=== PATIENT | female | born 1950 | race Caucasian/White ===

== ENCOUNTER 2021-01-11 21:06 | Inpatient (IN) ==
[2021-01-11] MEDS ORDERED: Naloxone 0.4 MG/ML INJ IVP PRN (23:35)
[2021-01-11] MEDS ORDERED: Ondansetron 4 MG/2 ML VIAL IVP PRN (23:35)
[2021-01-11] MEDS ORDERED: 0.9 % Sodium Chloride 1,000 ML IVC SCH (23:45)
[2021-01-12 06:12] LABS: Hematocrit 35.8 % (35.3-44.9); Hemoglobin 11.5 g/dL (11.5-15.4); Mean Corpuscular HGB Conc 32.1 g/dL (31.6-35.5); Mean Corpuscular Hemoglobin 30.3 pg (28.0-33.3); Mean Corpuscular Volume 94.5 fL (83.0-100.0); Mean Platelet Volume 11.5 fL (9.4-12.4); Platelet Count 200 K/mcL (140-400); Red Blood Count 3.79 M/mcL (3.82-4.97); Red Cell Distribution Width 12.6 % (11.5-14.5); White Blood Count 8.6 K/mcL (4.3-11.1)
[2021-01-12 06:20] LABS: INR 1.1; Prothrombin Time 12.8 Seconds (9.4-12.1)
[2021-01-12 06:22] LABS: Activated Partial Thrombo Time 27.7 Seconds (26.0-36.0)
[2021-01-12 06:34] LABS: BUN/Creatinine Ratio 25 (6-26); Blood Urea Nitrogen 19 mg/dL (8-23); Calcium 8.5 mg/dL (8.6-10.3); Carbon Dioxide 25 mEq/L (23-29); Chloride 106 mEq/L (98-107); Glucose 129 mg/dL (70-105); Osmolality,Calculated 288 (280-300); Potassium 3.9 mEq/L (3.5-5.1); Sodium 137 mEq/L (136-145); eGFR For African Americans > 60 (> 60); eGFR For Non-African Americans > 60 (> 60)
[2021-01-12] MEDS ORDERED: Aspirin Enteric Coated 81 MG Tablet PO SCH (13:15)
[2021-01-12] MEDS ORDERED: Dorzolamide/Timolol 1 DROP LEFT EYE SCH (21:00)
[2021-01-13 03:15] LABS: BUN/Creatinine Ratio 20 (6-26); Blood Urea Nitrogen 14 mg/dL (8-23); Calcium 8.3 mg/dL (8.6-10.3); Carbon Dioxide 23 mEq/L (23-29); Chloride 104 mEq/L (98-107); Glucose 101 mg/dL (70-105); Osmolality,Calculated 281 (280-300); Sodium 135 mEq/L (136-145); eGFR For African Americans > 60 (> 60); eGFR For Non-African Americans > 60 (> 60)
[2021-01-13 03:22] LABS: Basophils # 0.1 K/mcL (0.0-0.2); Basophils % 0.5 %; Eosinophils # 0.2 K/mcL (0.0-0.6); Eosinophils % 2.6 %; Hematocrit 35.6 % (35.3-44.9); Hemoglobin 11.4 g/dL (11.5-15.4); Immature Granulocytes % 0.2 % (0-4); Lymphocytes # 1.1 K/mcL (0.6-4.6); Lymphocytes % 11.5 %; Mean Corpuscular Volume 93.7 fL (83.0-100.0); Mean Platelet Volume 11.9 fL (9.4-12.4); Monocytes # 0.8 K/mcL (0.0-1.3); Monocytes % 8.8 %; Neutrophils # 7.1 K/mcL (1.6-8.9); Platelet Count 200 K/mcL (140-400); Red Cell Distribution Width 12.8 % (11.5-14.5); Segmented Neutrophils % 76.4 %; White Blood Count 9.3 K/mcL (4.3-11.1)
[2021-01-13] MEDS ORDERED: *HR* FentaNYL (PF) 100 MCG/2 ML VIAL ONE (06:41)
[2021-01-13] MEDS ORDERED: *HR* Propofol 200 MG/20 ML VIAL IVP ONE (06:42)
[2021-01-13] MEDS ORDERED: Ondansetron 4 MG/2 ML VIAL ONE (07:01)
[2021-01-13] MEDS ORDERED: Lidocaine -MPF 2% 2 ML VIAL ONE (07:01)
[2021-01-13] MEDS ORDERED: Lidocaine HCL 4 ML Topical Solution (Laryng-O-Jet Kit Sterile Pak) TP ONE (07:01)
[2021-01-13] MEDS ORDERED: *HR* Rocuronium Bromide 50 MG/5 ML VIAL ONE (07:01)
[2021-01-13] MEDS ORDERED: *HR* Succinylcholine 200 MG/10 ML VIAL IVP ONE (07:01)
[2021-01-13] MEDS ORDERED: Ethanol\\Acetic Acid\\Na Ace\\Ben 1,000 ML IRRIG.SOLN IR ONE (07:22)
[2021-01-13] MEDS ORDERED: Albuterol 2.5 MG/3 ML NEBULIZER IH PRN (07:26)
[2021-01-13] MEDS ORDERED: Ondansetron 4 MG/2 ML VIAL IVP PRN ×2 (07:26→10:07)
[2021-01-13] MEDS ORDERED: Nitroglycerin 0.4 MG TAB.SUBL SL PRN (07:26)
[2021-01-13] MEDS ORDERED: *HR* HYDROmorphone PF 0.5 MG/0.5 ML SYRINGE IVP PRN (07:26)
[2021-01-13] MEDS ORDERED: *HR* FentaNYL (PF) 100 MCG/2 ML VIAL IVP PRN (07:26)
[2021-01-13] MEDS ORDERED: Naloxone 0.4 MG/ML INJ IVP PRN ×2 (07:26→10:07)
[2021-01-13] MEDS ORDERED: ceFAZolin 2,000 MG in Water for inj. (sterile) 20 ML IVP ONE (07:45)
[2021-01-13] MEDS ORDERED: Povidone-Iodine 45 ML, Sodium Chloride IRRigation 1,000 ML IR ONE (07:45)
[2021-01-13] MEDS ORDERED: EPHEDrine 50 MG/ML VIAL ONE (07:56)
[2021-01-13] MEDS ORDERED: Acetaminophen IV 1,000 MG/100 ML BAG IVPB ONE (08:14)
[2021-01-13] MEDS ORDERED: Vancomycin 1,000 MG VIAL ONE (08:40)
[2021-01-13] MEDS ORDERED: *HR* HYDROMORPHONE 2 MG/ML VIAL ONE (08:57)
[2021-01-13] MEDS ORDERED: Cholecalciferol (D-3) 1,000 UNIT (25MCG) TABLET PO SCH (09:00)
[2021-01-13] MEDS ORDERED: amLODIPine 5 MG TABLET PO SCH (09:00)
[2021-01-13] MEDS ORDERED: *HR* OxyCODONE Immed Rel 5 MG TABLET PO ONE (10:00)
[2021-01-13] MEDS ORDERED: MOM Conc 10 ML UD.LIQ PO PRN (10:07)
[2021-01-13] MEDS ORDERED: Multivit/Ca/Min/Fe/FA 1 TAB TABLET PO SCH (10:07)
[2021-01-13] MEDS ORDERED: D5% in Water 1,000 ML IVC PRN (10:07)
[2021-01-13] MEDS ORDERED: *HR* Promethazine 25 MG/ML VIAL IM PRN (10:07)
[2021-01-13] MEDS ORDERED: *HR* OxyCODONE Immed Rel 5 MG TABLET PO PRN (10:07)
[2021-01-13] MEDS ORDERED: Dextrose Gel 15 GM/37.5 ML TUBE PO PRN ×2 (10:07)
[2021-01-13] MEDS ORDERED: Sennosides 8.6 MG TABLET PO PRN (10:07)
[2021-01-13] MEDS ORDERED: *HR* Dextrose 50 % in Water (Vial) 50 ML VIAL IVP PRN (10:07)
[2021-01-13] MEDS ORDERED: HYDROcodone BIT/Homatropine 5 MG TABLET PO PRN (10:07)
[2021-01-13] MEDS: Ascorbic Acid 500 MG TABLET PO SCH ×3 (11:27→16:13)
[2021-01-13] MEDS: Insulin LISPRO 300 UNITS/3 ML VIAL SUBQ SCH ×3 (11:27→19:12)
[2021-01-13] MEDS ORDERED: 0.9 % Sodium Chloride 1,000 ML IV ONE (13:35)
[2021-01-13] MEDS: Ringers Solution, Lactated 1,000 ML IVC SCH (16:07)
[2021-01-13] MEDS: CeFAZolin 2 GM/120 ML BAG IVPB SCH (16:21)
[2021-01-13] MEDS ORDERED: Dorzolamide/Timolol 1 DROP LEFT EYE SCH (21:00)
[2021-01-13] MEDS ORDERED: Insulin LISPRO 300 UNITS/3 ML VIAL SUBQ SCH (21:00)
[2021-01-14] MEDS: CeFAZolin 2 GM/120 ML BAG IVPB SCH (00:15)
[2021-01-14 01:06] LABS: Basophils % 0.1 %; Hematocrit 27.1 % (35.3-44.9); Immature Granulocytes % 0.4 % (0-4); Lymphocytes # 0.9 K/mcL (0.6-4.6); Lymphocytes % 5.6 %; Mean Corpuscular HGB Conc 32.8 g/dL (31.6-35.5); Mean Corpuscular Hemoglobin 31.2 pg (28.0-33.3); Mean Corpuscular Volume 95.1 fL (83.0-100.0); Mean Platelet Volume 10.8 fL (9.4-12.4); Monocytes # 1.1 K/mcL (0.0-1.3); Monocytes % 6.9 %; Neutrophils # 13.3 K/mcL (1.6-8.9); Platelet Count 161 K/mcL (140-400); Red Blood Count 2.85 M/mcL (3.82-4.97); Red Cell Distribution Width 12.4 % (11.5-14.5)
[2021-01-14 01:07] LABS: Hemoglobin 8.9 g/dL (11.5-15.4); White Blood Count 15.3 K/mcL (4.3-11.1)
[2021-01-14 01:26] LABS: BUN/Creatinine Ratio 22 (6-26); Blood Urea Nitrogen 16 mg/dL (8-23); Calcium 8.3 mg/dL (8.6-10.3); Carbon Dioxide 23 mEq/L (23-29); Chloride 106 mEq/L (98-107); Glucose 130 mg/dL (70-105); Osmolality,Calculated 287 (280-300); Sodium 137 mEq/L (136-145); eGFR For African Americans > 60 (> 60); eGFR For Non-African Americans > 60 (> 60)
[2021-01-14] MEDS ORDERED: *HR* HYDROmorphone PF 0.5 MG/0.5 ML SYRINGE IVP PRN ×2 (06:52→10:03)
[2021-01-14] MEDS ORDERED: *HR* FentaNYL (PF) 100 MCG/2 ML VIAL IVP PRN ×2 (06:52→10:03)
[2021-01-14] MEDS ORDERED: *HR* Propofol 200 MG/20 ML VIAL IVP ONE (07:06)
[2021-01-14] MEDS ORDERED: Lidocaine -MPF 2% 2 ML VIAL ONE (07:06)
[2021-01-14] MEDS ORDERED: Ondansetron 4 MG/2 ML VIAL ONE (07:06)
[2021-01-14] MEDS ORDERED: *HR* FentaNYL (PF) 100 MCG/2 ML VIAL ONE ×2 (07:06→07:42)
[2021-01-14] MEDS ORDERED: *HR* Succinylcholine 200 MG/10 ML VIAL IVP ONE (07:06)
[2021-01-14] MEDS ORDERED: *HR* Rocuronium Bromide 50 MG/5 ML VIAL ONE (07:13)
[2021-01-14] MEDS ORDERED: Lidocaine/EPI 1:100k 1% 50 ML VIAL ONE (07:23)
[2021-01-14] MEDS ORDERED: ROPIVACAINE/PF/NS 0.25% 1 EACH SYRINGE INTRAART ONE (07:41)
[2021-01-14] MEDS ORDERED: Ropivacaine/PF 0.5% 30 ML VIAL ONE (07:41)
[2021-01-14] MEDS ORDERED: *HR* Midazolam HCl 2 MG/2 ML VIAL ONE (07:42)
[2021-01-14] MEDS ORDERED: ceFAZolin 2,000 MG in Water for inj. (sterile) 20 ML IVP ONE (07:48)
[2021-01-14] MEDS: Insulin LISPRO 300 UNITS/3 ML VIAL SUBQ SCH ×3 (07:54→17:24)
[2021-01-14] MEDS: Ringers Solution, Lactated 1,000 ML IVC SCH ×2 (08:18→09:33)
[2021-01-14] MEDS ORDERED: Acetaminophen IV 1,000 MG/100 ML BAG IVPB ONE ×2 (08:21)
[2021-01-14] MEDS ORDERED: Ketorolac 30 MG/ML VIAL ONE (08:45)
[2021-01-14] MEDS ORDERED: Ketorolac 15 MG/ML VIAL IVP ONE (08:47)
[2021-01-14] MEDS ORDERED: Aspirin Enteric Coated 81 MG Tablet PO SCH (09:00)
[2021-01-14] MEDS ORDERED: Cholecalciferol (D-3) 1,000 UNIT (25MCG) TABLET PO SCH (09:00)
[2021-01-14] MEDS ORDERED: amLODIPine 5 MG TABLET PO SCH (09:00)
[2021-01-14] MEDS ORDERED: Sennosides 8.6 MG TABLET PO PRN (10:03)
[2021-01-14] MEDS ORDERED: Dextrose Gel 15 GM/37.5 ML TUBE PO PRN ×2 (10:03)
[2021-01-14] MEDS ORDERED: Ondansetron 4 MG/2 ML VIAL IVP PRN (10:03)
[2021-01-14] MEDS ORDERED: Ringers Solution, Lactated 1,000 ML IVC SCH (10:03)
[2021-01-14] MEDS ORDERED: MOM Conc 10 ML UD.LIQ PO PRN (10:03)
[2021-01-14] MEDS ORDERED: HYDROcodone BIT/Homatropine 5 MG TABLET PO PRN (10:03)
[2021-01-14] MEDS ORDERED: *HR* Promethazine 25 MG/ML VIAL IM PRN (10:03)
[2021-01-14] MEDS ORDERED: *HR* OxyCODONE Immed Rel 5 MG TABLET PO PRN (10:03)
[2021-01-14] MEDS ORDERED: *HR* Dextrose 50 % in Water (Vial) 50 ML VIAL IVP PRN (10:03)
[2021-01-14] MEDS ORDERED: D5% in Water 1,000 ML IVC PRN (10:03)
[2021-01-14] MEDS ORDERED: Naloxone 0.4 MG/ML INJ IVP PRN (10:03)
[2021-01-14 10:39] LABS: Basophils % 0.1 %; Hemoglobin 7.7 g/dL (11.5-15.4); Immature Granulocytes % 0.3 % (0-4); Lymphocytes # 0.7 K/mcL (0.6-4.6); Lymphocytes % 4.4 %; Mean Corpuscular HGB Conc 32.1 g/dL (31.6-35.5); Mean Corpuscular Hemoglobin 30.8 pg (28.0-33.3); Mean Platelet Volume 11.7 fL (9.4-12.4); Monocytes # 0.6 K/mcL (0.0-1.3); Monocytes % 3.9 %; Neutrophils # 13.8 K/mcL (1.6-8.9); Platelet Count 168 K/mcL (140-400); Red Cell Distribution Width 12.5 % (11.5-14.5); Segmented Neutrophils % 91.3 %; White Blood Count 15.2 K/mcL (4.3-11.1)
[2021-01-14] MEDS ORDERED: 0.9 % Sodium Chloride 250 ML ONE (12:22)
[2021-01-14] MEDS: ceFAZolin 2,000 MG in 0.9 % Sodium Chloride 100 ML IVPB SCH ×2 (16:25→23:49)
[2021-01-14] MEDS ORDERED: Ascorbic Acid 500 MG TABLET PO SCH (17:00)
[2021-01-14 17:22] LABS: Hematocrit 25.1 % (35.3-44.9); Hemoglobin 8.4 g/dL (11.5-15.4)
[2021-01-14] MEDS ORDERED: Insulin LISPRO 300 UNITS/3 ML VIAL SUBQ SCH (21:00)
[2021-01-14] MEDS ORDERED: Dorzolamide/Timolol 1 DROP LEFT EYE SCH (21:00)
[2021-01-15 01:24] LABS: Basophils % 0.1 %; Hematocrit 26.2 % (35.3-44.9); Hemoglobin 8.7 g/dL (11.5-15.4); Immature Granulocytes % 0.4 % (0-4); Lymphocytes # 0.6 K/mcL (0.6-4.6); Lymphocytes % 4.3 %; Mean Corpuscular HGB Conc 33.2 g/dL (31.6-35.5); Mean Corpuscular Hemoglobin 31.2 pg (28.0-33.3); Mean Corpuscular Volume 93.9 fL (83.0-100.0); Monocytes # 0.7 K/mcL (0.0-1.3); Monocytes % 4.5 %; Neutrophils # 13.4 K/mcL (1.6-8.9); Platelet Count 165 K/mcL (140-400); Red Blood Count 2.79 M/mcL (3.82-4.97); Red Cell Distribution Width 12.8 % (11.5-14.5); Segmented Neutrophils % 90.7 %; White Blood Count 14.7 K/mcL (4.3-11.1)
[2021-01-15 01:44] LABS: BUN/Creatinine Ratio 22 (6-26); Blood Urea Nitrogen 16 mg/dL (8-23); Calcium 7.8 mg/dL (8.6-10.3); Carbon Dioxide 24 mEq/L (23-29); Chloride 107 mEq/L (98-107); Glucose 168 mg/dL (70-105); Osmolality,Calculated 291 (280-300); Potassium 3.8 mEq/L (3.5-5.1); Sodium 138 mEq/L (136-145); eGFR For African Americans > 60 (> 60); eGFR For Non-African Americans > 60 (> 60)
[2021-01-15 07:43] VITALS: BP 147/78
[2021-01-15] MEDS: Insulin LISPRO 300 UNITS/3 ML VIAL SUBQ SCH (07:57)
[2021-01-15] MEDS ORDERED: Aspirin Enteric Coated 81 MG Tablet PO SCH (09:00)
[2021-01-15] MEDS ORDERED: Cholecalciferol (D-3) 1,000 UNIT (25MCG) TABLET PO SCH (09:00)
[2021-01-15] MEDS ORDERED: Multivit/Ca/Min/Fe/FA 1 TAB TABLET PO SCH (09:00)
[2021-01-15] MEDS ORDERED: amLODIPine 5 MG TABLET PO SCH (09:00)
== END 2021-01-15 11:01 | disposition home health service (06) | DRG 522 ==
LOC: 3NENU
PROVIDERS: ADMIT Internal Medicine; ATTEND Internal Medicine